=== PATIENT | male | born 1960 | race African-American/Black ===

== ENCOUNTER → 2016-11-19 | Outpatient (CLI) | payer OTHER ==
--- NOTE | 2016-11-20 16:42 | DX ---
Lumbar spine 2 view. Indication: Pain follow-up fusion Comparison October 15, 2016. FINDINGS: The grade 1 anterolisthesis is nearly completely reduced post bilateral pedicle screws and interbody disk spacer at L4-5. The remainder of the spine is grossly unremarkable. Impression: Improved alignment post posterior approach 2 level fusion at L4-5 with interbody disk sp acer. The grade 1 anterolisthesis is nearly completely reduced. 1 to 2 mm of anterolisthesis persists .
== END ==
LOC: FIMAGING 13:06
PROVIDERS: ATTEND Orthopaedic Surgery Orthopaedic Surgery of the Spine
DX: Z47.89 Encounter for other orthopedic aftercare (principal); Z98.1 Arthrodesis status

== ENCOUNTER 2016-12-15 09:41 | Emergency (ER) | payer OTHER ==
[2016-12-15 10:05] VITALS: BP 110/90; PULSE 85; RESP 14; TEMP 98.2; O2SAT 94
--- NOTE | 2016-12-15 10:33 | UCPHY ---
H & P Time Seen by Provider: 12/15/16 10:19 Patient Type: New HPI/ROS: This patient has an itchy rash around his waist since shortly after his L4-5 fusion at the end of October by Dr. Herman without complications. The rash is distributed around the region where he wears a the back brace since the surgery. He has been trying hydrocortisone cream and Benadryl without much improvement is having difficulty sleeping due to the severity of the itching. Initially his practitioner's thought that the symptoms are attributable to his opiate pain medications so they were discontinued but despite being off of last opiate 2 weeks now he still has ongoing symptoms. ROS: No constitutional symptoms. HEENT: No facial swelling pulmonary: No wheezing. 5 point ROS is otherwise negative. Past Medical/Surgical History: Otherwise healthy L4-5 fusion Smoking Status: Never smoked Physical Exam: Physical Exam Vital signs are normal. General: No acute distress HEENT: No angioedema or intraoral lesions Lungs: Clear to auscultation bilaterally. No respiratory distress. Cardiac: Brisk capillary refill is intact throughout. Skin: No rash or pallor. The patient has a raised papular lesions around his waist in the same distribution as location of his back brace. Some of them are mildly erythematous and some have mild desquamation. There is no significant pigment change. The eric easily with pressure. No petechia or purpura. Neuro: Alert and oriented x3 with no sensorimotor deficits. Initial differential diagnosis: He rash, contact dermatitis, Constitutional: Initial Vital Signs Temperature (C) 36.8 C 12/15/16 10:01 Heart Rate 85 12/15/16 10:01 Respiratory Rate 14 12/15/16 10:01 Blood Pressure 110/90 H 12/15/16 10:01 O2 Sat (%) 94 12/15/16 10:01 O2 Delivery Mode Room Air Allergies/Adverse Reactions: oxycodone Allergy (Verified 12/15/16 10:05) Home Medications: Medication Instructions Recorded Budesonide/Formoterol 160/4.5 2 puffs IH BID 10/21/16 [Symbicort 160-4.5 Mcg Inh (*)] Diazepam [Valium 5 MG (*)] 5 mg PO Q8 PRN 10/21/16 Ondansetron Odt [Zofran Odt 4 mg 4 mg PO DAILY PRN 10/21/16 (*)] oxyCODONE IR [Oxycodone Ir (*)] 5 - 10 mg PO Q6 PRN 10/21/16 Montelukast Sodium [Singulair 10 10 mg PO DAILY@1800 10/22/16 mg (*)] Desoximetasone 0.25% [Topicort 1 neftaly TP BID #1 tube 12/15/16 0.25% Cream (*)] hydrOXYzine HCL 50 - 100 mg PO Q6 PRN #30 tab 12/15/16 MDM/Departure - [facility] ED Course/Re-evaluation: Patient appears clinically well without evidence of anaphylaxis or other concerning findings. Will try increase potency steroid cream and have follow up with the component assembler supervisor. - Depart Disposition: Home, Routine, Self-Care Clinical Impression: Atopic dermatitis Qualifiers: Atopic dermatitis type: unspecified Qualifier Code: (L20.9) Atopic dermatitis, unspecified Condition: Good Instructions: Contact Dermatitis (ED) Additional Instructions: Diagnosis: Contact dermatitis Plan: Topical steroid cream 2 times a day to affected area Hydroxyzine for itching as needed Follow up with Dr. Carter-component assembler supervisor Prescriptions: Desoximetasone 0.25% [Topicort 0.25% Cream (*)] 1 neftaly TP BID #1 tube hydrOXYzine HCL 50 - 100 mg PO Q6 PRN #30 tab PRN Reason: Itching Referrals: James Lazcano MD [Primary Care Provider] - As per Instructions SIENNA CARTER [Medical Doctor] - As per Instructions - PQRS PQRS Measurement: NA
== END 2016-12-15 10:43 | disposition home or self-care (01) ==
LOC: CED 09:41
DX: L20.9 Atopic dermatitis, unspecified (principal); Z98.1 Arthrodesis status
CPT/HCPCS: 99203-PO; G0463-PO

== ENCOUNTER → 2017-01-13 | Outpatient (CLI) | payer OTHER | LOC: FIMAGING 15:31 | PROVIDERS: ATTEND Orthopaedic Surgery Orthopaedic Surgery of the Spine | DX: Z09 Encounter for follow-up examination after completed treatment for conditions other than malignant neoplasm (principal); Z98.1 Arthrodesis status ==

== ENCOUNTER → 2017-04-21 | Outpatient (CLI) | payer OTHER | LOC: FIMAGING 16:54 | PROVIDERS: ATTEND Orthopaedic Surgery Orthopaedic Surgery of the Spine | DX: Z09 Encounter for follow-up examination after completed treatment for conditions other than malignant neoplasm (principal); Z98.1 Arthrodesis status ==

== ENCOUNTER → 2017-07-13 | Outpatient (CLI) | payer OTHER | LOC: FIMAGING 15:07 | PROVIDERS: ATTEND Orthopaedic Surgery Orthopaedic Surgery of the Spine | DX: Z09 Encounter for follow-up examination after completed treatment for conditions other than malignant neoplasm (principal); Z98.1 Arthrodesis status ==

== ENCOUNTER → 2017-11-03 | Outpatient (CLI) | payer OTHER | LOC: FIMAGING 16:39 | PROVIDERS: ATTEND Orthopaedic Surgery Orthopaedic Surgery of the Spine | DX: M96.1 Postlaminectomy syndrome, not elsewhere classified (principal) ==

== ENCOUNTER → 2018-04-09 | Outpatient (CLI) | payer OTHER | LOC: FIMAGING 16:44 | PROVIDERS: ATTEND Family Medicine Sports Medicine | DX: Z13.828 Encounter for screening for other musculoskeletal disorder (principal) ==

== ENCOUNTER → 2018-04-28 | Outpatient (CLI) | payer OTHER | LOC: FIMAGING 19:12 | PROVIDERS: ATTEND Family Medicine Sports Medicine | DX: S83.272A Complex tear of lateral meniscus, current injury, left knee, initial encounter (principal); S83.242A Other tear of medial meniscus, current injury, left knee, initial encounter; M71.22 Synovial cyst of popliteal space [Baker], left knee ==